=== PATIENT | male | born 1945 | race Caucasian/White ===

== ENCOUNTER 2017-01-01 16:03 | Emergency (ER) | payer MEDICARE, BC ==
--- NOTE | 2017-01-01 16:50 | ERNOTE ---
Neuro HPI ER Record Date of Service: 01/04/17 Presenting Symptoms: visual loss Time Seen by Provider: 01/01/17 17:15 Source: patient, family, RN/MD Exam Limitations: no limitations Immunizations: IMMUNIZATION HX Immunizations Up to Date Yes History of Influenza Vaccine No Hx Pneumococcal Vaccination No Allergies/Adverse Reactions: Allergies Allergy/AdvReac Type Severity Reaction Status Date / Time griseofulvin ultramicrosize Allergy Severe Verified 01/01/17 16:20 [From Fulvicin P/G] Home Medications: HOME MEDICATIONS Clopidogrel Bisulfate [Plavix] 75 mg PO DAILY 01/01/17 [Last Taken Unknown] Hydroxyurea [Hydrea] 500 mg PO DAILY 01/01/17 [Last Taken Unknown] Metformin HCl [Glumetza] 500 mg PO TID 01/01/17 [Last Taken Unknown] - History of Present Illness Narrative: 70 y/o male sent to the ED from radiology for a CVA. He began having difficulty seeing out of his right eye on 12/28/16. He saw his eye doctor, who ordered a MRI. An ischemic stroke was noted on the MRI and the patient was directed to come here for further evaluation. He has continued to have visual difficulty since his symptoms began, but denies any other deficits. He has a history of a CVA in 2015, and is on Plavix. [facility] [place] [facility] He was seen in neurology there after his previous CVA. Date (Duration): 12/28/16 Onset: sudden onset, continues in ER - Character of Deficits New weakness: Absent: RUE, RLE, LUE, LLE, facial (rt), facial (lt), general ( diffuse) Altered sensation: Absent: RUE, RLE, LUE, LLE, facial (rt), facial (lt) Additional Deficits: Present: vision problems. Absent: impaired speech, difficulty swallowing, decrease ability to stand, decrease ability to walk, falling, weakness, off balance Baseline Cognition: Present: alert, oriented x 4 Baseline Gait: Present: walks w/o assistance Associated Symptoms: Denies: fever/chills, chest pain, headache, fainting, altered mental status, disoriented, confused, trouble thinking Prior Treament: Reports: recently seen, treated by physician. Denies: similar symptoms before Review of Systems - Review of Systems Constitutional: Absent: recent illness, fatigue, malaise EYE: Present: blurred vision. Absent: eye pain, eye discharge, double vision ENT: Absent: ear pain, nose congestion Respiratory: Absent: shortness of breath, cough Cardiology: Absent: chest pain, syncope, edema Gastrointestinal/Abdominal: Absent: nausea, vomiting, abdominal pain Genitourinary: Present: no symptoms reported Musculoskeletal: Present: no symptoms reported Skin: Absent: rash, lesions, lumps Neurological: Absent: headache, dizziness/light-headedness, weakness, numbness Endocrine: Present: no symptoms reported Hematologic/Lymphatic: Absent: easy bruising, easy bleeding Psych: Absent: anxiety, emotional problems - Patient's Past Medical History Patient History - Medical: Diabetes Type 2 Patient History - Cardiac/Respiratory: CVA/Stroke Patient History - Cancer: No Hx of Cancer Patient History - Surgical Procedures: Appendectomy Patient History - Other: None - Social History Living Situations: home Abuse History: No History of abuse Psych History: No pertinent hx Smoking Status: Current every day smoker Cigarettes Packs Per Day: 1 Have you smoked in the past 12 months: Yes Alcohol Use: none Drug Use: none - Immunizations Immunizations Up to Date: Yes Hx Pneumococcal Vaccination: No History of Influenza Vaccine: No Physical Exam - Physical Exam General Appearance: Present: wd/wn, alert, no apparent distress Eye Exam: EOMI: left, Abnormal EOM: right - nystagmus, Abnormal pupil: bilateral - pupils unequal, Photophobia: bilateral - 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 Absent: facial droop, motor weakness Skin Exam: Present: normal color, warm/dry Paul Coma Scale - Assess Eye Opening: Spontaneous Motor: Obeys Commands Verbal: Oriented - Total Coma Scale Total: 15 ED Progress - Results and Orders Patient's Lab Results:: I have reviewed the patient's lab results. - Vital Signs Patient's Vital Signs:: I have reviewed the patient's vital signs. Vital Signs: Vital Signs 01/01/17 16:12 Temperature 35.2 C L Pulse Rate 90 Respiratory 16 Rate Blood Pressure 137/68 O2 Sat by Pulse 96 Oximetry - CT/Ultrasound CT/Ultrasound Narrative: Technique: MRI Brain W/ W/O Contrast * Findings: There is a punctate region of abnormal restricted diffusion identified within the right basal ganglia which demonstrates low ADC map signal indicating true restricted diffusion. This region measures approximately 2 mm and indicates a acute to subacute right basal ganglia ischemic infarct. There is extensive periventricular and subcortical high FLAIR and T2 signal intensity within the white matter compatible with chronic microvascular ischemic disease change. There is diffuse atrophy No intra or extra-axial fluid collections are appreciated. Normal hunter-white differentiation. No hydrocephalus. There are normal flow voids. There is chronic microvascular ischemic change of the brainstem. No evidence for blood product is appreciated. No herniation. No abnormal contrast enhancement, midline shift or mass effect detected. There is asymmetric fat identified adjacent to the left cavernous sinus. This is nonspecific.. Sinuses are clear. Mastoid air cells demonstrate no effusions. IMPRESSION: 1. 2 mm punctate acute ischemic infarct right basal ganglia. 2. Chronic microvascular ischemic disease change of the brainstem, white matter as well as diffuse atrophy. Findings were relayed to the referring provider at time of dictation. Provider informed department to send the patient to the emergency room. Electronically signed by Skip Vinson M.D.. Technique: MRA Head W/O Contrast * Findings: The bilateral supraclinoid ICAs, MCA's, ACAs, vertebral arteries, basilar artery, proximal electrical & instrumentation supervisor and the remainder of the proximal posterior circulation are widely patent and normal in course and caliber. No abnormal stenosis or occlusion. The posterior circulation is somewhat suboptimally evaluated due to inadequate opacification. IMPRESSION: 1. Grossly unremarkable point hope ira of [place]. Electronically signed by Skip Vinson M.D.. - Progress/Reassessment Chief Complaint: CerebroVascular Accident Progress:: Unchanged Plan - Plan Plan: Discussed radiology results with patient. Informed that [facility] would [facility] once all of his lab results were available. Patient decided at some point that he did not want to wait any longer and that he would go home AMA. Patient encouraged to wait until I could obtain a consult , but he reports that he will contact his neurologist tomorrow. No new symptoms while in the department. Reported that his vision actually seemed to be improving when he left. Departure Clinical Impression: CVA, old, disturbances of vision - Departure Disposition: Against medical advice Condition: Stable
--- OUTSIDE RECORDS SUMMARY | 2017-01-01 16:55 | XMS REPORT | Continuity of Care Document ---
:1945 Author Organization [facility] ([facility]) Address [place] [address] Phone [phone] Care Team Providers Name Role Phone Unavailable Primary Care Provider Unavailable Source Comments This disclosure is being made pursuant to the Care Everywhere program, applicable federal and state laws, and may not contain all informaitonavailable regarding this patient.[facility] ([facility]) Active Allergies and Adverse Reactions Not on File Current Medications Not on file Active Problems Not on file Social History Tobacco Use Types Packs/Day Years Used Date Never Assessed Last Filed Vital Signs Vital Sign Reading Time Taken Blood Pressure 144/86 01/14/2006 1:51 PM UPPER CUTTER OUT Pulse 88 01/14/2006 1:51 PM [employer]PPER CUTTER [employer] Temperature 35.7 C (96.26 F) 01/14/2006 1:51 PM [employer]PP[employer] CUTTER OUT Respiratory Rate 18 01/14/2006 1:51 PM [employer]PP[employer] C[employer]TER [employer] Height 1.84 m (6' 0.44") 10/15/2005 9:24 AM UPPER CUTTER OUT Weight 113.299 kg (249 lb 12.5 oz) 01/14/2006 1:51 PM UPPER CUTTER OUT Body Mass Index 33.46 01/14/2006 1:51 PM UPPER CUTTER OUT Oxygen Saturation - - Plan of Care Health Maintenance Due Date Last Done Comments HCV Screening 1945 Hepatitis B Vaccine (1 of 3 - Primary Series) 1945 Tdap Vaccine 1956 Lipid Disorder Screening 1963 Td Vaccine 1963 Colonoscopy 1995 Prostate Cancer Screening 1995 Zoster Vaccine 2005 Pneumococcal Vaccine (1 of 2 - PCV13) 2010 Influenza Vaccine: Seasonal (#1) 06/11/2016 Results from Last 3 Months Not on file
[2017-01-01 17:17] VITALS: BP 152/92
[2017-01-01 17:33] LABS: Hematocrit 44.3 % (42.0-52.0); Hemoglobin 15.7 gm/dL (13.5-18.0); Mean Corpuscular Hemoglobin 36.5 pg (27-31); Mean Corpuscular Hgb Conc 35.4 g/dl (32-36); Mean Platelet Volume 10.1 fl (6.0-9.5); Neutrophil % 65.9 % (42-75.0); Platelet Count 551 K/mm3 (150-450); Red Cell Distribution Width 14.8 % (11.5-14.0); White Blood Count 7.6 K/mm3 (4.0-10.5)
[2017-01-01 17:46] LABS: Albumin * 4.1 gm/dl (3.4-5.0); Anion Gap 15.8 mmol/L (6.8-13.8); BUN/Creatinine Ratio 17.3 (9.0-21.6); Bilirubin, Total 0.4 mg/dL (0.0-1.1); Ca. Corrected For Albumin 8.8 mg/dL (8.4-10.2); Calcium * 9.2 mg/dL (7.9-10.9); Carbon Dioxide 25.5 mmol/L (24-32.6); Potassium 4.3 mmol/L (3.4-4.6); Total Protein 8.1 gm/dL (6.2-8.2)
[2017-01-01 18:00] LABS: INR 1.06 INR (0.90-1.10); Partial Thrombolplastin Time 29.2 Seconds (24-32)
== END 2017-01-01 18:44 | disposition left against medical advice (07) ==
LOC: ER 16:03
DX: I69.398 Other sequelae of cerebral infarction (principal); H53.9 Unspecified visual disturbance; Z53.29 Procedure and treatment not carried out because of patient's decision for other reasons; E11.9 Type 2 diabetes mellitus without complications